=== PATIENT | female | born 1980 | race Caucasian/White ===

== ENCOUNTER 2018-09-01 02:44 | Inpatient (IN) | END 2018-09-02 18:55 | disposition home or self-care (01) | DRG 343 ==

== ENCOUNTER 2018-12-10 14:12 | Emergency (ER) | payer OTHER ==
[~2018-12-10] VITALS: Wt 73.3 kg
[~2018-12-10 14:12] MED LIST: HYDR-3601 PO; PREN1TAB49 PO
[2018-12-10] MEDS ORDERED: KETOROLAC 60 MG INJ IM STA (16:48)
[2018-12-10] MEDS ORDERED: METOCLOPRAMIDE 10 MG INJ IM ONE (17:00)
[2018-12-10] MEDS ORDERED: DIPHENHYDRAMINE 50 MG CAP PO ONE (17:00)
[2018-12-10] MEDS ORDERED: NITR-58 PO (18:45)
[2018-12-10] MEDS ORDERED: NITROFURANTOIN MACROCRYS 100 MG CAP PO ONE (19:00)
[2018-12-10 19:04] VITALS: BP 118/60; PULSE 75; RESP 19
--- NOTE | 2018-12-11 00:17 | ERD ---
ER Documentation Chief Complaint Chief Complaint vag bleed today 18 weeks HPI 38 year-old [female] coming in today with Chief Complaint: vaginal bleeding. History of Present Illness: Patient reports vaginal bleeding starting today around 1330. Patient reports flow comparable to light menstrual period, no clots. Associated symptoms include fatigue, weakness. Review of systems: All systems were reviewed and are negative except for what is indicated in the history of present illness. Past Medical History: [Negative for hypertension, diabetes or other medical problems]; surgical history includes tummy tuck Social History: [Patient denies tobacco, alcohol, elicit drug use] Medications: [None] [Reviewed as documented Nursing Notes] Allergies: [NKDA] [Reviewed as documented in Nursing Notes] Social Concerns: Denies ROS All systems reviewed and are negative except as per history of present illness. Medications Home Meds Active Scripts Nitrofurantoin Monohyd Macrocr* (Macrobid*) 100 Mg Capsr, 100 MG PO BID for UTI for 7 Days, #13 CAP Prov:ANGUS HLOGUIN V HOME HEALTH CARE PHYSICIAN 12/10/18 Hydrocodone Bit-Acetaminophen (Hydrocodone Bit-APAP) 5-325MG Tablet, 1 TAB PO Q6H PRN for PAIN LEVEL 6-10, #20 TAB Prov:DEEPA MONTGOMERY 09/02/18 Reported Medications Vits W-Ca,Fe,Fa(<1MG) () 1 Tab Tablet, 1 TAB PO DAILY 01/07/13 Allergies Allergies: Coded Allergies: No Known Allergy (Unverified , 01/09/13) PMhx/Soc History of Surgery: Yes (TUMMY TUCK,BREAST IMPLANTS) Anesthesia Reaction: No Hx Neurological Disorder: No Hx Respiratory Disorders: No Hx Cardiac Disorders: No Hx Psychiatric Problems: No Hx Miscellaneous Medical Probl: Yes (HEMMORHOIDS) Hx Alcohol Use: Yes (OCCASIONAL) Hx Substance Use: No Hx Tobacco Use: No Smoking Status: Never smoker FmHx Family History: diabetes Physical Exam Vitals Vital Signs Date Temp Pulse Resp B/P (MAP) Pulse Ox O2 O2 Flow FiO2 Time Delivery Rate 12/10/18 98.3 75 19 118/60 98 Room Air 19:04 (79) 12/10/18 97.7 81 18 120/69 100 14:52 (86) Physical Exam Const: No acute distress Head: Atraumatic Eyes: Normal Conjunctiva ENT: Normal External Ears, Nose and Mouth. Neck: Full range of motion. No meningismus. Resp: Clear to auscultation bilaterally Cardio: Regular rate and rhythm, no murmurs Abd: Soft, non tender, non distended. Normal bowel sounds Skin: No petechiae or rashes Back: No midline or flank tenderness Ext: No cyanosis, or edema Neur: Awake and alert Psych: Normal Mood and Affect Vaginal exam deferred. Patient refused. Result Diagram: 12/10/18 1716 Results 24 hrs Laboratory Tests Test 12/10/18 17:16 White Blood Count 7.9 10^3/ul Red Blood Count 3.89 10^6/ul Hemoglobin 11.9 g/dl Hematocrit 35.9 % Mean Corpuscular Volume 92.3 fl Mean Corpuscular Hemoglobin 30.6 pg Mean Corpuscular Hemoglobin Concent 33.1 g/dl Red Cell Distribution Width 13.2 % Platelet Count 234 10^3/UL Mean Platelet Volume 9.2 fl Immature Granulocytes % 0.300 % Neutrophils % 66.1 % Lymphocytes % 25.3 % Monocytes % 6.6 % Eosinophils % 1.3 % Basophils % 0.4 % Nucleated Red Blood Cells % 0.0 /100WBC Immature Granulocytes # 0.020 10^3/ul Neutrophils # 5.2 10^3/ul Lymphocytes # 2.0 10^3/ul Monocytes # 0.5 10^3/ul Eosinophils # 0.1 10^3/ul Basophils # 0.0 10^3/ul Nucleated Red Blood Cells # 0.0 10^3/ul Urine Color RADHA Urine Clarity CLOUDY Urine pH 6.0 Urine Specific [place] 1.024 Urine Ketones 1+ mg/dL Urine Nitrite NEGATIVE mg/dL Urine Bilirubin NEGATIVE mg/dL Urine Urobilinogen NEGATIVE mg/dL Urine Leukocyte Esterase NEGATIVE Margaret/ul Urine Microscopic RBC 5 /HPF Urine Microscopic WBC 14 /HPF Urine Squamous Epithelial Cells MANY /HPF Urine Calcium Oxalate Crystals MANY /HPF Urine Bacteria FEW /HPF Urine Mucus MODERATE /HPF Urine Hemoglobin 3+ mg/dL Urine Glucose NEGATIVE mg/dL Urine Total Protein 1+ mg/dl Beta HCG, Quantitative 6850.8 mIU/ml Current Medications Medications Dose Sig/Bobby Start Time Status Last (Trade) Ordered Route PRN Stop Time Admin Dose Reason Admin 10 mg ONCE ONCE 12/10/18 DC Metoclopramid IM 17:00 e HCl 12/10/18 17:00 (Reglan) Ketorolac 60 mg ONCE STAT 12/10/18 DC Tromethamine IM 16:48 (Toradol) 12/10/18 16:58 50 mg ONCE ONCE 12/10/18 DC Diphenhydrami PO 17:00 ne HCl 12/10/18 17:00 (Benadryl) 100 mg ONCE ONCE 12/10/18 DC 12/10/18 Nitrofurantoi PO 19:00 19:02 n 12/10/18 19:01 Macrocrystals (Macrodantin) Procedures/MDM Patient with complaint of vaginal bleeding during ED course includes a thorough examination and history. Records also includes labs and ultrasound. Low suspicion for bleed or life-threatening gynecological medical emergency or gastrointestinal medical emergency. Otherwise healthy patient presenting with constellation of symptoms likely representing uncomplicated vaginal bleeding during as characterized by history, physical exam findings [, radiologic/lab findings]. Ultrasound showing live fetus with heartbeat, without any acute abnormalities. No respiratory distress, otherwise relatively well appearing and nontoxic. Patient and spouse educated on diagnoses, prescriptions, follow-up care, return precautions. Strict return precautions given for worsening condition; questions answered discharge. Disposition for discharge with followup in 1-2 days with [facility]. Departure Diagnosis: Primary Impression: UTI (urinary tract infection) during Trimester: unspecified trimester Qualified Codes: O23.40 - Unspecified infection of urinary tract in , unspecified trimester Additional Impression: Threatened miscarriage Condition: Stable Patient Instructions: Understanding Urinary Tract Infections (UTIs), Bleeding During Early , Vaginal Bleed in Referrals: [facility] YOU HAVE RECEIVED A MEDICAL SCREENING EXAM AND THE RESULTS INDICATE THAT YOU DO NOT HAVE A CONDITION THAT REQUIRES URGENT TREATMENT IN THE EMERGENCY DEPARTMENT. FURTHER EVALUATION AND TREATMENT OF YOUR CONDITION CAN WAIT UNTIL YOU ARE SEEN IN YOUR DOCTORS OFFICE WITHIN THE NEXT 1-2 DAYS. IT IS YOUR RESPONSIBILITY TO MAKE AN APPOINTMENT FOR FOLOW-UP CARE. IF YOU HAVE A PRIMARY DOCTOR --you should call your primary doctor and schedule an appointment IF YOU DO NOT HAVE A PRIMARY DOCTOR YOU CAN CALL OUR PHYSICIAN REFERRAL HOTLINE AT IF YOU CAN NOT AFFORD TO SEE A PHYSICIAN YOU CAN CHOSE FROM THE FOLLOWING [facility] [address] [facility]. [facility] [address] [facility] [address] [facility] [address] [facility] [address] [facility] [facility] [address] [facility]. [facility] YOU HAVE RECEIVED A MEDICAL SCREENING EXAM AND THE RESULTS INDICATE THAT YOU DO NOT HAVE A CONDITION THAT REQUIRES URGENT TREATMENT IN THE EMERGENCY DEPARTMENT. FURTHER EVALUATION AND TREATMENT OF YOUR CONDITION CAN WAIT UNTIL YOU ARE SEEN IN YOUR DOCTORS OFFICE WITHIN THE NEXT 1-2 DAYS. IT IS YOUR RESPONSIBILITY TO MAKE AN APPOINTMENT FOR FOLOW-UP CARE. IF YOU HAVE A PRIMARY DOCTOR --you should call your primary doctor and schedule and appointment IF YOU DO NOT HAVE A PRIMARY DOCTOR YOU CAN CALL OUR PHYSICIAN REFERRAL HOTLINE AT . IF YOU CAN NOT AFFORD TO SEE A PHYSICIAN YOU CAN CHOSE FROM THE FOLLOWING [facility] INSTITUTIONS: [facility] [address] [place] [address] [facility] [address] [place] [address] [facility] [address] [place] [address] [facility] Hours: 8:00 am - 5:00 pm Additional Instructions: Call your primary care doctor TOMORROW for an appointment during the next 2-3 days.See the doctor sooner or return here if your condition worsens before your appointment time. Call [facility] [employer] [facility] and inform her of visit to ED. Will likely want to see you in office. If bleeding with clots, Return to ER. Lots of fluids/water with antibiotics. ANGUS HOLGUIN NP Dec 11, 2018 00:17
== END 2018-12-10 19:05 | disposition home or self-care (01) ==
LOC: FTE 14:12
DX: O23.42 Unspecified infection of urinary tract in pregnancy, second trimester (principal); O20.0 Threatened abortion; Z3A.18 18 weeks gestation of pregnancy
CPT/HCPCS: 36415; 76801; 81001; 84702; 85025; 87086; Z7502; Z7610

== ENCOUNTER 2019-03-20 19:55 | Outpatient (CLI) | payer OTHER ==
[~2019-03-20] VITALS: Ht 144.8 cm; Wt 78.8 kg
[~2019-03-20 19:55] MED LIST changes: +NITR-58 PO
[2019-03-20 20:02] VITALS: BP 102/59; PULSE 91; RESP 18; Ht 144.8 cm; Wt 78.8 kg
[2019-03-20] MEDS ORDERED: FER325 PO (20:16)
[2019-03-20] MEDS ORDERED: FOL8 PO (20:18)
[2019-03-20] MEDS ORDERED: CALC600T24 PO (20:18)
[2019-03-20] MEDS ORDERED: LACTATED RINGER'S 1,000 ML IV ONE (22:30)
[2019-03-20] MEDS ORDERED: LACTATED RINGER'S 1,000 ML IV SCH (23:30)
[2019-03-21] MEDS: TERBUTALINE 1 MG/ML INJ SC PRN ×2 (02:15→03:21)
--- NOTE | 2019-03-21 04:08 | PN ---
Triage Information Date/Time 03/21/19 Reason for visit: Uterine contractions Weeks of Gestation 32w /Para A2 Diabetes: none Hypertention: none Additional information leaking fluid Objective Vital Signs Date Temp Pulse Resp B/P (MAP) Pulse Ox O2 O2 Flow FiO2 Time Delivery Rate 03/20/19 98.3 91 18 102/59 Room Air 20:02 (73) Heart Rate: 130's Heart Rate Comments CAT 1 Contractions: >10 Minutes Apart Exam ROM plus Neg Results/Medications Result Diagram: 03/20/192054 Results 24 hrs Laboratory Tests Test 03/20/19 20:50 03/20/19 20:55 03/20/19 22:40 Urine Color STRAW Urine Clarity CLEAR Urine pH 7.0 Urine Specific [place] 1.010 Urine Ketones NEGATIVE Urine Nitrite NEGATIVE Urine Bilirubin NEGATIVE Urine Urobilinogen NEGATIVE Urine Leukocyte Esterase NEGATIVE Urine Hemoglobin NEGATIVE Urine Glucose NEGATIVE Urine Total Protein NEGATIVE White Blood Count 6.6 Red Blood Count 3.42 L Hemoglobin 10.5 L Hematocrit 31.1 L Mean Corpuscular Volume 90.9 Mean Corpuscular Hemoglobin 30.7 Mean Corpuscular Hemoglobin Concent 33.8 Red Cell Distribution Width 14.1 Platelet Count 189 Mean Platelet Volume 9.3 Immature Granulocytes % 0.500 H Neutrophils % 57.3 Lymphocytes % 27.7 Monocytes % 9.1 Eosinophils % 4.9 Basophils % 0.5 Nucleated Red Blood Cells % 0.0 Immature Granulocytes # 0.030 Neutrophils # 3.8 Lymphocytes # 1.8 Monocytes # 0.6 Eosinophils # 0.3 Basophils # 0.0 Nucleated Red Blood Cells # 0.0 Membranes Rupture NEGATIVE Medications Current Medications Lactated Ringer's 1,000 ml @ 125 mls/hr Q8H IV Last administered on 03/20/19at 23:32; Admin Dose 125 MLS/HR; Start 03/20/19 at 23:30 Imaging Results BPP 8/8 GILA 16. CVL 4.3 Disposition: Discharge Assessment/Plan A IUP 32w PTL resolved P discharge home with routine labor instructions RTH prTOM Aguilera MD March 21, 2019 04:08
--- NOTE | 2019-03-21 04:38 | TRIAGE ---
OB Triage Datetime Report Generated by CPN: 03/21/2019 04:38 Datetime: 03/21/2019 04:02 Labor Evaluation Frequency: X3 Monitor Mode: External Duration (sec)2399: 40-60 Quality: Mild Pattern: Normal: <= 5 Contractions in 10 Minutes Resting Tone [place]: Relaxed Datetime: 03/21/2019 04:01 Pain Presence: None/Denies Datetime: 03/21/2019 03:19 Monitor Mode: External Datetime: 03/21/2019 03:00 Labor Evaluation Frequency: IRREGULAR Monitor Mode: External Duration (sec)2399: 40 Quality: Mild Pattern: Normal: <= 5 Contractions in 10 Minutes Resting Tone [place]: Relaxed Datetime: 03/21/2019 02:13 Monitor Mode: External Datetime: 03/21/2019 02:10 Labor Evaluation Frequency: irregular Monitor Mode: External Duration (sec)2399: 40 Quality: Mild Pattern: Normal: <= 5 Contractions in 10 Minutes Resting Tone [place]: Relaxed Datetime: 03/21/2019 01:30 Labor Evaluation Frequency: irregular Monitor Mode: External Duration (sec)2399: 40-120 Quality: Mild Pattern: Normal: <= 5 Contractions in 10 Minutes Resting Tone [place]: Relaxed Datetime: 03/21/2019 00:37 Labor Evaluation Frequency: IRREGULAR Monitor Mode: External Duration (sec)2399: 40-130 Quality: Mild Pattern: Normal: <= 5 Contractions in 10 Minutes Resting Tone [place]: Relaxed Contraction Comments: UTERINE ACTIVITY NOTED Heart Rate FHR Baseline Rate: 125 Monitor Mode: External US Variability: Moderate 6-25 bpm Accelerations: 15X15 Decelerations: None Category: Category I Comments: NST COMPLETE Datetime: 03/21/2019 00:13 Monitor Mode: External Monitor Mode: External US Datetime: 03/21/2019 00:12 Monitor Mode: External Datetime: 03/21/2019 00:11 Monitor Mode: External Monitor Mode: External US Datetime: 03/21/2019 00:00 Monitor Mode: External Resting Tone [place]: Relaxed Contraction Comments: UTERINE ACTIVITY NOTED Heart Rate FHR Baseline Rate: 125 Monitor Mode: External US Variability: Moderate 6-25 bpm Accelerations: 15X15 Decelerations: None Category: Category I Datetime: 03/20/2019 23:00 Labor Evaluation Frequency: IRREGULAR Monitor Mode: External Duration (sec)2399: 40-100 Quality: Mild Pattern: Normal: <= 5 Contractions in 10 Minutes Resting Tone [place]: Relaxed Contraction Comments: UTERINE ACTIVITY NOTED Heart Rate FHR Baseline Rate: 130 Monitor Mode: External US Variability: Moderate 6-25 bpm Accelerations: 15X15 Decelerations: None Category: Category I Datetime: 03/20/2019 22:40 Monitor Mode: External Datetime: 03/20/2019 22:00 Labor Evaluation Frequency: IRREGULAR Monitor Mode: External Duration (sec)2399: 50-70 Quality: Mild Pattern: Normal: <= 5 Contractions in 10 Minutes Resting Tone [place]: Relaxed Contraction Comments: UTERINE ACTIVITY NOTED Heart Rate FHR Baseline Rate: 135 Monitor Mode: External US Variability: Moderate 6-25 bpm Accelerations: 15X15 Decelerations: Variable Category: Category II Datetime: 03/20/2019 21:00 Labor Evaluation Frequency: IRREGULAR Monitor Mode: External Duration (sec)2399: 40-90 Quality: Mild Pattern: Normal: <= 5 Contractions in 10 Minutes Resting Tone [place]: Relaxed Contraction Comments: UTERINE ACTIVITY NOTED Heart Rate FHR Baseline Rate: 130 Monitor Mode: External US Variability: Moderate 6-25 bpm Accelerations: 15X15 Decelerations: None Category: Category I Datetime: 03/20/2019 20:09 Monitor Mode: External Datetime: 03/20/2019 20:08 Time of Arrival: 03/20/2019 19:39 EGA: 32.0 Arrived By: Ambulatory Arrived From: Home Chief Complaint: c/o lower back pain and lower abdominal pain with occasional perineal pressur e Movement: Present Contractions: Irregular Time Contractions Began: 03/20/2019 17:00 Rupture of Membranes: Denies Vaginal Bleeding: None Vaginal Discharge: Present Recent Sexual Intercouse: Denies Abdominal Trauma: Not Applicable Patient Complaints: Contractions; Back Pain Time Provider Notified: 03/20/2019 20:20 Provider Notified: AYALON Initial Plan: EFM, CALL MD Datetime: 03/20/2019 20:02 Stage of : OB Triage Assessment Type: Triage Maternal Assessment Level of Consciousness: Fully Conscious DTR's/Clonus: DTRs 2+; No Clonus Headache: Denies Blurred Vision: No Respiratory Effort: Unlabored; Regular Rhythm; Equal Expansion Breath Sounds, Left: Clear and Equal Breath Sounds, Right: Clear and Equal Nausea/Vomiting: Denies RUQ Epigastric Pain: Denies Facial Edema: None Temperature Route: Oral Fall Risk Assessment History of Falling: (0) No Secondary Diagnosis: (0) No Ambulatory Aid: (0) Bedrest/Nurse Assist IV Therapy: (0) No Gait: (0) Normal/Bedrest/Immobile Mental Status: (0) Oriented to Own Ability Fall Score: 0 Fall Risk Score Definition: No Risk: No action required Pain Assessment Pain Scale: 8 Pain Presence: Intermittent Pain Type: Contraction; Pressure Pain Location: Abdomen; Back; Perineum Pain Goal: 0 Pain Relief Measures: Comfort Measures Datetime: 03/20/2019 20:00 Monitor Mode: External US Datetime: 03/20/2019 19:59 Monitor Mode: External
--- NOTE | 2019-03-21 04:43 | TRIAGE ---
OB Triage Datetime Report Generated by CPN: 03/21/2019 04:42 Datetime: 03/20/2019 20:08 EGA: 32.0
== END 2019-03-21 04:36 | disposition home or self-care (01) ==
LOC: OBT 19:55 → L-D 19:57 → OBT 03-21 04:36
PROVIDERS: ATTEND Obstetrics & Gynecology
DX: O60.03 Preterm labor without delivery, third trimester (principal); O09.523 Supervision of elderly multigravida, third trimester; Z3A.32 32 weeks gestation of pregnancy
CPT/HCPCS: 76817; 76818; 81003; 84112; 85025; 87086; 96360; 96361; 96372; J3105; J7120; Z7500; G0463

== ENCOUNTER 2019-05-08 09:47 | Inpatient (IN) | payer OTHER ==
[~2019-05-08] VITALS: Ht 152.4 cm; Wt 79.5 kg
[~2019-05-08 09:47] MED LIST changes: +CALC600T24 PO; +FER325 PO; +FOL8 PO; -HYDR-3601 PO; -NITR-58 PO
[2019-05-08 10:40] VITALS: Ht 152.4 cm; Wt 79.5 kg
[2019-05-08] MEDS ORDERED: METHYLERGONOVINE 0.2 MG INJ IM PRN ×2 (11:00→12:30)
[2019-05-08] MEDS ORDERED: CEFAZOLIN 2 GM/50 ML (PMX) 50 ML IVPB SCH (11:00)
[2019-05-08] MEDS ORDERED: MISOPROSTOL 200 MCG TAB PR PRN ×2 (11:00→12:30)
[2019-05-08] MEDS ORDERED: OXYTOCIN 30 UNITS/LR 500 ML IV SCH ×2 (11:00→12:30)
[2019-05-08] MEDS ORDERED: CARBOPROST 250 MCG INJ IM PRN ×2 (11:00→12:30)
[2019-05-08] MEDS ORDERED: OXYTOCIN 30 UNITS/LR 500 ML IV PRN ×2 (11:00→12:30)
[2019-05-08] MEDS: LACTATED RINGER'S 1,000 ML IV SCH ×2 (12:13→20:06)
[2019-05-08] MEDS ORDERED: KETOROLAC 30 MG INJ IV PRN ×3 (12:30→13:00)
[2019-05-08] MEDS ORDERED: NACL 0.9% 3 ML SYG IV SCH (12:30)
--- NOTE | 2019-05-08 12:39 | PREAC ---
Date/Time of Note Date/Time of Note DATE: 05/08/19 TIME: 12:39 Anesthesia Eval and Record Evaluation Time Pre-Procedure Interview DATE: 05/08/19 TIME: 12:39 Age 39 Sex female NPO: 8 hrs Preoperative diagnosis Planned procedure repeat c/s Past Medical History Past Medical History: Includes GI: Obesity Surgery & Anesthesia Issues No known issue Meds Anticoagulation: No Beta Marisol within 24 hr: No Reason Beta Marisol not given: Pt. not on B-Marisol Reported Medications Calcium Carbonate* (Calcium Carbonate*) 600 MG Ca Tab, 600 MG PO, TAB 03/20/19 Folic Acid* (Folic Acid*) 0.8 Mg Tablet, 0.8 MG PO DAILY, TAB 03/20/19 Ferrous Sulfate* (Ferrous Sulfate*) 325 Mg Tabec, 325 MG PO DAILY, TAB 03/20/19 Vits W-Ca,Fe,Fa(<1MG) () 1 Tab Tablet, 1 TAB PO DAILY 01/07/13 Current Medications Cefazolin Sodium/ Dextrose 50 ml @ 100 mls/hr ONCE IVPB ; Start 05/08/19 at 11:00 Oxytocin/Lactated Ringer's 500 ml @ 125 mls/hr POST IV ; Start 05/08/19 at 11:00 Oxytocin/Lactated Ringer's 500 ml @ 0 mls/hr ONCE PRN IV .VAGINAL BLEEDING; Start 05/08/19 at 11:00 Methylergonovine Maleate (Methergine) 0.2 mg ONCE PRN IM .VAGINAL BLEEDING; Start 05/08/19 at 11:00 Carboprost Tromethamine (Hemabate) 250 mcg ONCE PRN IM .VAGINAL BLEEDING; Start 05/08/19 at 11:00 Misoprostol (Cytotec) 1,000 mcg ONCE PRN OR .VAGINAL BLEEDING; Start 05/08/19 at 11:00 Lactated Ringer's 1,000 ml @ 125 mls/hr Q8H IV Last administered on 05/08/19at 12:13; Admin Dose 125 MLS/HR; Start 05/08/19 at 12:06 IV Flush (NS 3 ml) 3 ml PER PROTOCOL IV ; Start 05/08/19 at 12:30; Status UNV Cefazolin Sodium 50 ml @ 100 mls/hr Q8H IVPB ; Start 05/08/19 at 12:30; Stop 05/09/19 at 04:59; Status UNV Oxytocin/Lactated Ringer's 500 ml @ 50 mls/hr Q10H IV ; Start 05/08/19 at 12:30; Stop 05/08/19 at 22:29; Status UNV Ibuprofen (Motrin) 600 mg Q6 PRN PO pain; Start 05/08/19 at 12:30; Status UNV Simethicone (Mylicon) 160 mg Q8H PRN PO .GAS; Start 05/08/19 at 12:30; Status UNV Oxytocin/Lactated Ringer's 500 ml @ 0 mls/hr ONCE PRN IV .VAGINAL BLEEDING; Start 05/08/19 at 12:30; Status UNV Methylergonovine Maleate (Methergine) 0.2 mg ONCE PRN IM .VAGINAL BLEEDING; Start 05/08/19 at 12:30; Status UNV Carboprost Tromethamine (Hemabate) 250 mcg ONCE PRN IM .VAGINAL BLEEDING; Start 05/08/19 at 12:30; Status UNV Misoprostol (Cytotec) 1,000 mcg ONCE PRN OR .VAGINAL BLEEDING; Start 05/08/19 at 12:30; Status UNV Acetaminophen/ Hydrocodone Bitart ([place] (5/325)) 2 tab Q6H PRN PO MODERATE PAIN LEVEL 4-6; Start 05/08/19 at 12:30; Status UNV Ketorolac Tromethamine (Toradol) 30 mg Q6H PRN IV PAIN LEVEL 1-3; Start 05/08/19 at 12:30; Stop 05/11/19 at 12:29; Status UNV Meds reviewed: Yes Allergies Coded Allergies: No Known Allergy (Unverified , 03/20/19) Allergies Reviewed: Yes Labs/Studies Labs Reviewed: Reviewed by anesthesiologist Result Diagram: 05/08/19 1130 Laboratory Tests 05/08/19 11:30 Blood Bank Test 05/08/19 11:30 Blood Type O POSITIVE Rh Immune Globulin Candidate NO test: Positive Pre-procedure Exam Airway: Adequate mouth opening, Adequate thyromental dist Mallampati: Mallampati II Teeth: Normal Lung: Normal Heart: Normal ASA Physical Status ASA physical status: 2 Emergency: None Planned Anesthetic Neuraxial: Spinal Planned Pain Management Sub-arachniod narcotics Pre-operative Attestations Prior to commencing anesthesia and surgery, the patient was re-evaluated, there was verification of: *The patient's identity *The results of appropriate recent lab work and preoperative vital signs *The above evaluation not changing prior to induction *Anesthetic plan, risk benefits, alternative and complications discussed with patient/family; questions answered; patient/family understands, accepts and wishes to proceed. MAXIMUS SIMS May 08, 2019 12:39
[2019-05-08] MEDS ORDERED: ONDANSETRON 4 MG INJ IV PRN ×2 (13:00)
[2019-05-08] MEDS ORDERED: DIPHENHYDRAMINE 50 MG INJ IV PRN ×2 (13:00)
[2019-05-08] MEDS ORDERED: ALBUTEROL 0.083% (NEB) 2.5 MG/3 ML AMP HHN PRN (13:00)
[2019-05-08] MEDS ORDERED: HYDROmorphONE 1 MG/5 ML IV SYRINGE IV PRN ×3 (13:00)
[2019-05-08] MEDS ORDERED: METOCLOPRAMIDE 10 MG INJ IV PRN (13:00)
[2019-05-08] MEDS ORDERED: NALOXONE (0.4 MG/ML) INJ IV PRN (13:00)
[2019-05-08] MEDS ORDERED: HYDROmorphONE 0.5 MG/0.5 ML SYG IV PRN ×2 (13:00)
[2019-05-08] MEDS ORDERED: FENTAnyl 50 MCG/ML VIAL IV PRN ×3 (13:00)
--- NOTE | 2019-05-08 14:04 | QN ---
Documentation Comment see op note [id number] DARCIE GRAFF M.D. May 08, 2019 14:04
[2019-05-08] MEDS: CEFAZOLIN 1 GM/50 ML (PMX) 50 ML IVPB SCH ×2 (16:01→21:10)
[2019-05-08 17:25] VITALS: BP 99/61; PULSE 71; RESP 16
[2019-05-08 18:25] VITALS: BP 106/62; PULSE 76; RESP 16
[2019-05-08 20:00] VITALS: BP 99/56; PULSE 82; RESP 20
[2019-05-09] MEDS: LACTATED RINGER'S 1,000 ML IV SCH ×3 (04:06→23:25)
[2019-05-09] MEDS: CEFAZOLIN 1 GM/50 ML (PMX) 50 ML IVPB SCH (04:46)
[2019-05-09 04:53] VITALS: BP 100/62; PULSE 83; RESP 20
--- NOTE | 2019-05-09 06:57 | HP ---
DATE OF ADMISSION: 05/08/2019 The patient, who is going to have a secondary repeat and bilateral tubal ligation at [facility] on 05/08/2019. HISTORY OF PRESENT ILLNESS: The patient is a 39-year-old with para 3-0-2-3, history of x1, desires to have tubal ligation, is scheduled for repeat and tubal ligation at 39 weeks. PAST MEDICAL HISTORY: Patient's past medical history consistent with advanced maternal age with mild anemia. MEDICATIONS: She is takin. Iron twice a day. 2. vitamins. PAST SURGICAL HISTORY: She has history of and abdominoplasty, as well as appendectomy in 2 018. She also has history of breast implants in 2004. Her was done in 2012. PAST OBSTETRICAL HISTORY: Consistent with 2 abortions and 1 and 1 vaginal delivery. She h ad 2 spontaneous abortions, 3 full-term pregnancies and other than 1 . REVIEW OF SYSTEMS: Consistent with within normal limits. LABORATORY TESTS: The patient's laboratory records consistent with blood type O positive, antibody n egative. Pap smear normal, rubella immune, VDRL nonreactive. Urine culture was negative. Gonorrhea and chlamydia was negative. GCT was high. GTT was normal. Her last CBC on 04/15/2019 consistent w ith hemoglobin of 11.2, hematocrit 32.8 and GBS is negative. PHYSICAL EXAMINATION: VITAL SIGNS: I saw the patient last on 05/06/2019. At that time, she was 38 weeks and 5 days. Her urine was negative. Her blood pressure was 111/76. GENERAL: She appeared to be in no apparent distress. HEART: Regular rate and rhythm. LUNGS: Clear to auscultation bilaterally. ABDOMEN: Gravid, nontender. EXTREMITIES: No clubbing, cyanosis, or edema. PELVIC: Deferred. To note, the patient signed the consent for the tubal ligation on 02/28/2019 Patient understands the risks of the procedure such as risk of bleeding, infection, damage to internal organs, transfusion, anesthesia, understands that this procedure is irreversible. She does not desire any further future pregnancies. She knows the alternatives such as IUD, OCP and such, and she declines those. She unde rstands the benefit of the is to decrease and maternal morbidity and mortality second pavel to uterine scar dehiscence and abdominal placental implantation. All questions answered. Dictated By: DARCIE GRAFF MD, RA/CHANCE Conf#: [id number] DID#: [id number]
[2019-05-09 08:00] VITALS: BP 99/57; PULSE 76; RESP 18
[2019-05-09 12:00] VITALS: BP 97/62; PULSE 75; RESP 17
[2019-05-09 16:08] VITALS: BP 102/57; PULSE 78; RESP 18
[2019-05-09] MEDS: HYDROCODONE/APAP (5/325) TAB PO PRN (16:08)
--- NOTE | 2019-05-09 17:57 | QN ---
Documentation Comment POD # 1 Pt is feeling well ambulate VSS CBC stable Inc healing well Plan continue current care DARCIE GRAFF M.D. May 09, 2019 17:57
[2019-05-09 19:35] VITALS: BP 110/75; PULSE 75; RESP 19
[2019-05-09] MEDS: IBUPROFEN 600 MG TAB PO PRN (21:06)
[2019-05-10 03:35] VITALS: BP 105/63; PULSE 75; RESP 19
[2019-05-10] MEDS: LACTATED RINGER'S 1,000 ML IV SCH (04:06)
[2019-05-10] MEDS: HYDROCODONE/APAP (5/325) TAB PO PRN ×2 (04:40→18:09)
[2019-05-10 08:00] VITALS: BP 118/72; PULSE 73; RESP 18; RESP 22
[2019-05-10] MEDS: IBUPROFEN 600 MG TAB PO PRN (09:08)
--- NOTE | 2019-05-10 11:45 | PAC ---
Date/Time of Note Date/Time of Note DATE: 05/10/19 TIME: 11:45 Post-Anesthesia Notes Post-Anesthesia Note Last documented vital signs Vital Signs Date Temp Pulse Resp B/P (MAP) Pulse Ox O2 O2 Flow FiO2 Time Delivery Rate 05/10/19 97.8 73 18 118/72 Room Air 08:00 (87) 05/09/19 97 12:00 Activity: WNL Respiratory function: WNL Cardiovascular function: WNL Mental status: Baseline Pain reasonably controlled: Yes Hydration appropriate: Yes Nausea/Vomiting absent: Yes MAXIMUS SIMS May 10, 2019 11:45
[2019-05-10] MEDS ORDERED: MAGNESIUM HYDROXIDE 30ML CUP PO PRN (15:00)
--- NOTE | 2019-05-10 15:02 | QN ---
Documentation Comment Pt is feeling well no concerns + flatus VSS Plan continue current care MOM DARCIE GALLAGHER M.D. May 10, 2019 15:02
[2019-05-10 15:51] VITALS: BP 120/66; PULSE 86; RESP 18
[2019-05-10 20:30] VITALS: BP 114/65; PULSE 63; RESP 20
[2019-05-11] MEDS: IBUPROFEN 600 MG TAB PO PRN ×3 (00:21→11:59)
[2019-05-11 03:46] VITALS: BP 123/64; PULSE 72; RESP 20
[2019-05-11 08:00] VITALS: BP 107/71; PULSE 79; RESP 20
--- NOTE | 2019-05-11 10:03 | QN ---
Documentation Comment see d/c note [id number] DARCIE GRAFF M.D. May 11, 2019 10:03
--- NOTE | 2019-05-12 12:23 | DELSUM ---
Delivery Summary A-C Datetime Report Generated by CPN: 05/12/2019 12:23 DELIVERY PERSONNEL Olericulture Teacher: Zokaee, Yuly MATERNAL INFORMATION Delivery Anesthesia: Spinal Medications in Delivery: SEE ANESTHESIA NOTE Delivery QBL (ml): 800 Placenta Cultured: No Maternal Complications: None LABOR SUMMARY EDC: 05/15/2019 00:00 No. Babies in Womb: 1 Attempted: No Labor Anesthesia: None LABOR INFORMATION Reason for Induction: Not Applicable Group B Beta Strep: Negative Antibiotics # of Doses: 1 Antibiotics Time of Last Dose: 05/08/2019 13:01 Steroids Given: None Reason Steroids Not Administered: Not Applicable MEMBRANES Membranes Rupture Method: Artificial Rupture of Membranes: 05/08/2019 13:20 Length of Rupture (hr): 0.02 Amniotic Fluid Color: Clear Amniotic Fluid Amount: Moderate Amniotic Fluid Odor: Normal STAGES OF LABOR Stage 3 hr: 0 Stage 3 min: 1 CSECTION DELIVERY Primary Indication: Repeat Elective CSection Urgency: Non Elective CSection Incidence: Repeat Labor: No Labor Elective: Nonelective CSection Incision: Lower Uterine Transverse Sterilization Procedure: Dianna BABY A INFORMATION Infant Delivery Date/Time: 05/08/2019 13:21 Method of Delivery: Born in Route : No : N/A Forceps: N/A Vacuum Extraction: N/A Shoulder Dystocia : N/A SHOULDER DYSTOCIA BABY A Delivery Date/Time: 05/08/2019 13:21 PRESENTATION/POSITION BABY A Presentation: Cephalic Cephalic Presentation: Vertex Vertex Position: N/A Breech Presentation: N/A PLACENTA INFORMATION BABY A Placenta Delivery Time : 05/08/2019 13:22 Placenta Method of Delivery: Manual Removal Placenta Status: Delivered SCORES BABY A Heart Rate 1 min: >100 bpm Resp Effort 1 min: Good Cry Reflex Irritability 1 min: Cough/Sneeze/Pulls Away Muscle Tone 1 min: Active Motion Color 1 min: Blue/Pale Resuscitation Effort 1 min: Tactile Stimulation SCORE 1 MIN: 8 Heart Rate 5 min: >100 bpm Resp Effort 5 min: Good Cry Reflex Irritability 5 min: Cough/Sneeze/Pulls Away Muscle Tone 5 min: Active Motion Color 5 min: Body [place], Extremit Blue Resuscitation Effort 5 min: Tactile Stimulation SCORE 5 MIN: 9 INFORMATION BABY A Gestational Age at Delivery: 39.0 Gestational Status: Full Term- 39- 40.6 Weeks Outcome : Liveborn, with signs of life Condition : Stable Sex: Male IDENTIFICATION/MEDS BABY A ID Band Number: [id number] ID Band Location: Right Leg; Left Arm Sensor Applied: Yes Sensor Number: [id number] Sensor Location : Cord Clamp Vitamin K Given : Not Given Erythromycin Given: Not Given WEIGHT/LENGTH BABY A Infant Birthweight (gm): 3115 Infant Weight (lb): 6 Infant Weight (oz): 14 Length (in): 19.00 Length (cm): 48.26 CORD INFORMATION BABY A No. Cord Vessels: 3 Nuchal Cord : N/A Cord Blood Taken: Yes Infant Suction: Mouth; Nose ASSESSMENT BABY A Infant Complications: None Physical Findings at Delivery: Within Normal Limits Infant Respirations: Appears Normal Staff Analyst/ALS Called : Yes Infant Care By: RT Transferred To: Remains with Mother
== END 2019-05-11 12:20 | disposition home or self-care (01) | DRG 785 ==
LOC: L-D 09:47 → PP1 17:35
PROVIDERS: ADMIT Obstetrics & Gynecology; ATTEND Obstetrics & Gynecology
PROC: 0UB70ZZ Excision of Bilateral Fallopian Tubes, Open Approach (ICD-10-PCS; 2019-05-08)
PROC: 10D00Z1 Extraction of Products of Conception, Low, Open Approach (ICD-10-PCS; principal; 2019-05-08 12:30)
DX: O34.211 Maternal care for low transverse scar from previous cesarean delivery (principal); O69.81X0 Labor and delivery complicated by cord around neck, without compression, not applicable or unspecified; O99.02 Anemia complicating childbirth; Z3A.39 39 weeks gestation of pregnancy; O99.214 Obesity complicating childbirth; Z37.0 Single live birth; Z30.2 Encounter for sterilization
CPT/HCPCS: 85025; 85610; 85730; 86592; 86850; 86900; 86901; 87340; 88302; 99464; J0690; J1885; J2590; J7120

== ENCOUNTER 2019-06-01 15:32 | Emergency (ER) | payer OTHER ==
[~2019-06-01] VITALS: Ht 152.4 cm; Wt 67.9 kg
[~2019-06-01 15:32] MED LIST changes: -CALC600T24 PO; +CEPH-443 PO; -FER325 PO; -FOL8 PO
[2019-06-01 15:35] VITALS: Ht 152.4 cm; Wt 67.9 kg
--- NOTE | 2019-06-01 17:32 | ERD ---
ER Documentation Chief Complaint Chief Complaint pain site and vag bleed x 3 weeks, 05/08/19 HPI 39-year-old female, status post on 05/08/2019, presents the emergency department, complaining of pelvic pain and persistent non-malodorous vaginal bleeding. The pain is dull, constant, 4/10. She denies fever, no chills, no vaginal discharge. ROS All systems reviewed and are negative except as per history of present illness. Medications Home Meds Active Scripts Cephalexin* (Keflex*) 500 Mg Capsule, 500 MG PO QID for 7 Days, CAP Prov:IMELDA STILL MD 06/01/19 Reported Medications Vits W-Ca,Fe,Fa(<1MG) () 1 Tab Tablet, 1 TAB PO DAILY 01/07/13 Allergies Allergies: Coded Allergies: No Known Allergy (Unverified , 03/20/19) PMhx/Soc History of Surgery: Yes (TUMMY TUCK,BREAST IMPLANTS) Anesthesia Reaction: No Hx Neurological Disorder: No Hx Respiratory Disorders: No Hx Cardiac Disorders: No Hx Psychiatric Problems: No Hx Miscellaneous Medical Probl: Yes (HEMMORHOIDS) Hx Alcohol Use: No Hx Substance Use: No Hx Tobacco Use: No FmHx Family History: No diabetes, No coronary disease Physical Exam Vitals Vital Signs Date Temp Pulse Resp B/P (MAP) Pulse Ox O2 O2 Flow FiO2 Time Delivery Rate 06/01/19 98.5 91 18 137/71 99 19:09 (93) 06/01/19 98.9 99 18 118/78 97 15:35 (91) Physical Exam Const: No acute distress Head: Atraumatic Eyes: Normal Conjunctiva ENT: Normal External Ears, Nose and Mouth. Neck: Full range of motion. No meningismus. Resp: Clear to auscultation bilaterally Cardio: Regular rate and rhythm, no murmurs Abd: Soft, non tender, non distended. Normal bowel sounds Skin: No petechiae or rashes Back: No midline or flank tenderness Ext: No cyanosis, or edema Neur: Awake and alert Psych: Normal Mood and Affect Result Diagram: 06/01/19 1812 06/01/19 181 Results 24 hrs Laboratory Tests Test 06/01/19 17:50 06/01/19 17:52 06/01/19 18:00 06/01/19 18:12 POC Beta HCG, NEGATIVE Qualitative Bedside Urine pH 7.0 7.0 (LAB) Bedside Urine 2+ 2+ Protein (LAB) Bedside Urine Negative Negative Glucose (UA) Bedside Urine Negative Negative Ketones (LAB) Bedside Urine Blood 3+ 3+ Bedside Urine Negative Negative Nitrite (LAB) Bedside Urine 2+ 3+ Leukocyte Esterase (L White Blood Count 6.9 10^3/ul Red Blood Count 4.48 10^6/ul Hemoglobin 13.4 g/dl Hematocrit 41.0 % Mean Corpuscular 91.5 fl Volume Mean Corpuscular 29.9 pg Hemoglobin Mean Corpuscular 32.7 g/dl Hemoglobin Concent Red Cell 12.8 % Distribution Width Platelet Count 299 10^3/UL Mean Platelet 8.9 fl Volume Immature 0.300 % Granulocytes % Neutrophils % 67.0 % Lymphocytes % 21.1 % Monocytes % 9.6 % Eosinophils % 1.3 % Basophils % 0.7 % Nucleated Red Blood 0.0 /100WBC Cells % Immature 0.020 10^3/ul Granulocytes # Neutrophils # 4.6 10^3/ul Lymphocytes # 1.5 10^3/ul Monocytes # 0.7 10^3/ul Eosinophils # 0.1 10^3/ul Basophils # 0.1 10^3/ul Nucleated Red Blood 0.0 10^3/ul Cells # Sodium Level 139 mmol/L Potassium Level 3.6 mmol/L Chloride Level 100 mmol/L Carbon Dioxide 30 mmol/L Level Anion Gap 9 Blood Urea Nitrogen 8 mg/dl Creatinine 0.59 mg/dl Est Glomerular > 60 mL/min Filtrat Rate mL/min Glucose Level 92 mg/dl Calcium Level 8.9 mg/dl Patient: JUAN J LIMON : 1980 Age: 39 Sex: F MR #: [id number] DOS: 06/01/19 1735 Ordering MD: IMELDA STILL MD Location: [facility] Room/Bed: PROCEDURE: US Pelvis. CLINICAL INDICATION: Status post section. Pelvic pain and vaginal bleeding. TECHNIQUE: The pelvis was evaluated with transabdominal and transvaginal sonography in the axial and sagittal planes. COMPARISON: No prior study is available for comparison. FINDINGS: Uterus: 12.0 x 6.4 x 8.1 cm. Endometrium: Thickened and heterogeneous measuring 23.6 mm. No vascularity visualized with color Doppler sonography. Right ovary: 4.9 x 3.2 x 3.0 cm. Left ovary: 2.2 x 2.0 x 3.4 cm. Uterine masses: None. Ovarian masses: None. Color Doppler and pulsed Doppler sonography demonstrate normal flow to the ovaries. Other pelvic masses: None. Free fluid: None. IMPRESSION: 1. Thickened and heterogeneous endometrium measuring 23.6 mm. This may indicate blood products and less likely retained products of conception. Clinical correlation and follow-up advised. 2. Otherwise unremarkablepelvic ultrasound. RPTAT: QQ Procedures/MDM Differential diagnosis include but not limited to: UTI, colitis, gastroenteritis, kidney stones, irritable bowel syndrome, inflammatory bowel syndrome, malabsorption syndrome, cholelithiasis, food intolerance, medication side effect, pancreatitis, diverticulitis, bowel obstruction. Low suspicion for acute abdomen Physical examination and clinical presentation consistent most likely with urinary tract infection. During the ED course the patient remained stable, no new complaints. Results and clinical impression discussed with patient who agrees with management. The patient is stable to be treated outpatient and will be discharged home, some side effects of prescribed medications (headache, rash, n ausea, vomiting, diarrhea, drowsiness, habituation, bleeding, hypertension, interactions with other medications) were reviewed. The patient was instructed to follow up with the primary care provider in the next 48h. If symptoms persist, worsen or new symptoms develop, then patient should return to the ED immediately. Instructions explained and given directly by me to the patient with acknowledg ment and demonstrated understanding. Disclaimer: Inadvertent spelling and grammatical errors are likely due to EHR/dictation software use and do not reflect on the overall quality of patient care. Also, please note that the electronic time recorded on this note does not necessarily reflect the actual time of the patient encounter. Departure Diagnosis: Primary Impression: Pelvic pain Additional Impressions: Status post UTI (urinary tract infection) during Condition: Stable Additional Instructions: Muchas wai por [facility] para nelson servicio. Esperamos que en nelson visita a la andrés de emergencia nelson problema medico haya sido solucionado y que se sienta mucho mejor. Para estar seguros que nelson mejoria sigue en proceso, le pedimos el favor de hacer mike britney de seguimiento medico con nelson doctor primario en los proximos 2-4 menendez. Lleve con usted estos documentos y las medicinas recetadas. Si wanda sintomas empeoran, NO SE ESPERE, por favor regrese a andrés de emergencia INMEDIATAMENTE. En monisha que usted no tenga un mdico de atencin primaria: Llame al mdico o clnica comunitaria de referencia que aparece abajo abner las horas de consultorio para hacer mike britney para que le vean. CLINICAS: [facility] [phone] [facility] [phone] [facility] [phone] [facility] [phone] [facility] [phone] [id number] [facility]. [phone] IMELDA MAYBERRY MD Jun 01, 2019 17:32
[2019-06-01 19:09] VITALS: BP 137/71; PULSE 91; RESP 18
== END 2019-06-01 19:10 | disposition home or self-care (01) ==
LOC: FTE 15:32
DX: O90.89 Other complications of the puerperium, not elsewhere classified (principal); R10.2 Pelvic and perineal pain; O86.20 Urinary tract infection following delivery, unspecified; B96.89 Other specified bacterial agents as the cause of diseases classified elsewhere
CPT/HCPCS: 76830; 76856; 80048; 81003; 81025; 85025; Z7502